=== PATIENT | female | born 1980 | race African-American/Black ===

== ENCOUNTER 2017-06-30 07:29 | Emergency (ER) | payer BC, OTHER ==
[~2017-06-30] VITALS: Ht 160 cm; Wt 96.9 kg
[~2017-06-30 07:29] MED LIST: DEXTLIQ PO; MEDR4PAK3 PO; MUCI600T PO
[2017-06-30 07:32] VITALS: BP 136/62; PULSE 81; RESP 18; TEMP 98.7; O2SAT 97
--- NOTE | 2017-06-30 08:03 | PD ---
HPI Chief Complaint: Complaint Time Seen by Provider: 07:37 Travel History International Travel<30 days: No Contact w/Intl Traveler<30days: No Traveled to known affect area: No History of Present Illness HPI This 37-year-old female is complaining of trouble urinating. She feels like her bladder is full but she is unable to pass any urine. She passes only small amounts and is somewhat painful. Went to the pharmacy yesterday and got some [id number] medication which has not helped. She is not aware of fever or chills. She has had urinary tract infections in the past. She has had a complete hysterectomy several years ago because of ovarian cysts PFSH Past Medical History Asthma: No Blood Disorders: No Anxiety: No Depression: No Heart Rhythm Problems: No Cancer: No Cardiovascular Problems: No High Cholesterol: No Chest Pain: No Congestive Heart Failure: No COPD: No Cerebrovascular Accident: No Diabetes: No Diminished Hearing: No Endocrine: No Gastrointestinal Disorders: No Glaucoma: No Genitourinary: No Headaches: No Hepatitis: No Hiatal Hernia: No Hypertension: No Immune Disorder: No Implanted Vascular Access Dvce: No Medical other: No Musculoskeletal: No Neurologic: Yes Psychiatric: No Reproductive: Yes (PELVIC MASS; ENDOMETROSIS) Respiratory: No Migraines: Yes Seizures: No Sleep Apnea: No Thyroid Disease: No PNEUMOCCOCAL Vaccine (Year): 2 ?: Not Menopausal: Yes : 1 Para: 1 Miscarriage: 0 : 0 Ovarian Cysts: Yes Past Surgical History Abdominal Surgery: Yes Appendectomy: Yes Cardiac Surgery: No Section: Yes (2005) Ear Surgery: No Endocrine Surgery: No Eye Surgery: No Genitourinary Surgery: No Gynecologic Surgery: Yes (LAPAROSCOPY X 2; ) Hysterectomy: Yes Neurologic Surgery: No Oral Surgery: No Pacemaker: No Thoracic Surgery: No Other Surgery: Yes (LAP, , ACO RECONSTUCTION ON LEFT KNEE) Social History Alcohol Use: Yes (Occ.) Tobacco Use: No Substance Use: No Allergies-Medications (Allergen,Severity, Reaction): Coded Allergies: No Known Allergies (Verified Adverse Reaction, Unknown, 06/30/17) Reported Meds & Prescriptions Reported Meds & Active Scripts Active No Active Prescriptions or Reported Medications Review of Systems General / Constitutional: No: Fever, Chills Eyes: No: Diploplia, Blurred Vision HENT: No: Headaches Cardiovascular: No: Chest Pain or Discomfort Respiratory: No: Cough Gastrointestinal: No: Nausea, Vomiting Genitourinary: Positive: Decreased Urinary Output, Hesitancy Musculoskeletal: No: Myalgias, Arthralgias Skin: No Rash, No Itching Neurologic: No: Weakness Endocrine: No: Heat Intolerance Hematologic/Lymphatic: No: Easy Bruising Physical Exam Narrative GENERAL: Well-developed female SKIN: Focused skin assessment warm/dry. HEAD: Atraumatic. Normocephalic. EYES: Pupils equal and round. No scleral icterus. No injection or drainage. ENT: No nasal bleeding or discharge. Mucous membranes pink and moist. NECK: Trachea midline. No JVD. CARDIOVASCULAR: Regular rate and rhythm. No murmur appreciated. RESPIRATORY: No accessory muscle use. Clear to auscultation. Breath sounds equal bilaterally. GASTROINTESTINAL: Abdomen soft, non-tender, nondistended. Hepatic and splenic margins not palpable. There is some suprapubic tenderness Pelvic there is some whitish vaginal discharge. Again noted is some suprapubic tenderness. No masses MUSCULOSKELETAL: No obvious deformities. No clubbing. No cyanosis. No edema. NEUROLOGICAL: Awake and alert. No obvious cranial nerve deficits. Motor grossly within normal limits. Normal speech. PSYCHIATRIC: Appropriate mood and affect; insight and judgment normal. Data Data Last Documented VS Vital Signs Date Time Temp Pulse Resp B/P (MAP) Pulse Ox O2 Delivery O2 Flow Rate FiO2 06/30/17 07:32 98.7 81 18 136/62 (86) 97 Orders Orders Urinalysis - C+S If Indicated (06/30/17 07:31) Urine Culture (06/30/17 08:25) Cath For Specimen (06/30/17 08:46) Gc And Chlamydia Pcr (06/30/17 08:46) Wet Prep Profile (06/30/17 08:46) Sulfamet-Trimeth Ds 800-160 Mg (Bactrim (06/30/17 09:00) Labs Laboratory Tests Test 06/30/17 08:25 06/30/17 09:00 Urine Collection Type CATH Urine Color ORANGE Urine Turbidity CLOUDY Urine pH 6.0 Urine Specific [place] 1.020 Urine Protein 30 mg/dL Urine Glucose (UA) 100 mg/dL Urine Ketones TRACE mg/dL Urine Occult Blood TRACE Urine Nitrite POS Urine Bilirubin NEG Urine Urobilinogen 4.0 MG/DL Urine Leukocyte Esterase TRACE Urine RBC 0-3 /hpf Urine WBC 6-8 /hpf Urine Squamous Epithelial Cells > 8 /hpf Urine Bacteria MANY /hpf Microscopic Urinalysis Comment CATH-CULTURE IND Urine Collection Time 0825 Clue Cells (Wet Prep) NONE SEEN Vaginal Trichomonas (Wet Prep) NONE SEEN Vaginal Yeast (Wet Prep) NONE SEEN MDM Medical Decision Making Medical Screen Exam Complete: Yes Emergency Medical Condition: Yes Medical Record Reviewed: Yes Differential Diagnosis Differential includes UTI, vaginitis, urinary retention Narrative Course Urinalysis shows positive nitrate, trace leukocyte esterase, 6-8 white cells and many bacteria. Sosa catheter was inserted an 800 cc of urine obtained initially. Wet prep is negative. Impression is UTI, urinary retention Diagnosis Primary Impression: UTI (urinary tract infection) Scripts Phenazopyridine (Pyridium) 100 Mg Tab 100 MG PO Q8H Y for DYSURIA, #10 TAB 0 Refills Prov: Renaldo Rosenberg MD 06/30/17 Sulfamethoxazole-Trimethoprim (Bactrim DS) 800-160 Mg Tab 1 TAB PO BID for Infection, #14 TAB 0 Refills Prov: Renaldo Rosenberg MD 06/30/17 Disposition: 01 DISCHARGE HOME Condition: Stable Renaldo Rosenberg MD June 30, 2017 08:03
[2017-06-30 08:29] LABS: BLOOD, URINE TRACE (NEG); GLUCOSE,URINE 100 mg/dL (NEG); KETONE, URINE TRACE mg/dL (NEG); NITRITE,URINE POS (NEG); URINE LEUKOCYTE ESTERASE TRACE (NEG)
[2017-06-30 08:30] LABS: BILIRUBIN, URINE NEG (NEG); URINE COLOR ORANGE (YELLW/STRAW)
[2017-06-30 08:36] LABS: BACTERIA, URINE MANY /hpf; RBC, URINE 0-3 /hpf (0-3); SQUAMOUS EPITHELIAL CELL URINE > 8 /hpf (0-5)
[2017-06-30] MEDS ORDERED: SULFAMETHOXAZOLE-TRIMETHOPRIM DS 800-160 MG TAB PO SCH (09:00)
[2017-06-30] MEDS ORDERED: PHEN0.4T PO (09:19)
[2017-06-30] MEDS ORDERED: BACT800T5 PO (09:19)
== END 2017-06-30 09:41 | disposition home or self-care (01) ==
LOC: PHED 07:29
DX: N39.0 Urinary tract infection, site not specified (principal); B96.20 Unspecified Escherichia coli [E. coli] as the cause of diseases classified elsewhere; Z87.440 Personal history of urinary (tract) infections
CPT/HCPCS: 51702; 81001; 87077; 87086; 87186; 87210; 87491; 87591